=== PATIENT | female | born 2000 | race Caucasian/White ===

== ENCOUNTER 2020-03-15 11:20 | Outpatient (CLI) | payer MEDICAID | END 2020-03-15 23:59 | disposition home or self-care (01) | LOC: COV 11:20 | PROVIDERS: ATTEND Family Medicine | DX: M79.10 Myalgia, unspecified site (principal); R11.0 Nausea; Z20.828 Contact with and (suspected) exposure to other viral communicable diseases ==

== ENCOUNTER 2021-03-20 13:59 | Outpatient (CLI) | payer OTHER, MEDICAID ==
--- NOTE | 2021-03-20 15:25 | XRAY Report ---
PROCEDURE: Chest 2 View X-Ray INDICATIONS: ACUTE BRONCHITIS TECHNIQUE: 2 view(s) of the chest. COMPARISON: None. FINDINGS: Surgical changes and devices: None. Lungs and pleura: No pleural effusions or pneumothorax. Mild bronchial wall thickening bilateral hil ar region are seen. No focal infiltrate. Mediastinum: Mediastinal contours are normal. Heart size is normal. Bones and chest wall: No suspicious bony abnormalities. Soft tissues appear unremarkable. IMPRESSION: Mild reactive airway disease such as bronchitis. No focal infiltrate, pleural effusion o r pneumothorax. Reviewed by: Shawn Herman MD on 03/20/2021 3:24 PM PDT Approved by: Shawn Herman MD on 03/20/2021 3:24 PM PDT Station ID: [id number]
== END 2021-03-20 23:59 | disposition home or self-care (01) ==
LOC: DI.N 13:59
PROVIDERS: ATTEND Physician Assistant Medical
DX: J20.9 Acute bronchitis, unspecified (principal); Z20.822 Contact with and (suspected) exposure to COVID-19; R05 Cough